=== PATIENT | male | born 1955 | race Caucasian/White ===

== ENCOUNTER 2017-11-11 09:40 | Inpatient (IN) | payer BC ==
[2017-11-11] MEDS: ONDANSETRON (ODT) 4 MG TAB ODT (10:41)
[2017-11-11] MEDS: HYDROCODONE/APAP (10/325) TAB PO (10:41)
[2017-11-11 11:13] LABS: ADD MAN DIFF? NO
[2017-11-11 11:22] LABS: WHITE BLOOD COUNT 7.4 10^3/ul (4.8-10.8)
[2017-11-11 11:22] LABS: ADD UMIC NO; BASOPHIL # 0.1 10^3/ul (0.0-0.1); BASOPHILS % 0.9 % (0.0-2.0); EOSINOPHILS # 0.2 10^3/ul (0.0-0.5); EOSINOPHILS % 2.6 % (0.0-7.0); HEMATOCRIT 43.9 % (42.0-52.0); HEMOGLOBIN 14.5 g/dl (14.0-18.0); LYMPHOCYTES % 27.5 % (15.0-51.0); MEAN CORPUSCULAR HEMOGLOBIN 28.6 pg (29.0-33.0); MEAN CORPUSCULAR VOLUME 86.6 fl (82.0-101.0); MEAN PLATELET VOLUME 10.3 fl (7.4-10.4); MONOCYTE # 0.6 10^3/ul (0.3-0.9); MONOCYTES % 8.4 % (0.0-11.0); NEUTROPHIL # 4.5 10^3/ul (1.6-7.5); NEUTROPHILS % 60.3 % (39.0-77.0); PLATELET COUNT 236 10^3/UL (140-415); RED BLOOD COUNT 5.07 10^6/ul (4.70-6.10); RED CELL DISTRIBUTION WIDTH 13.8 % (11.5-14.5); UR ASCORBIC ACID NEGATIVE (NEGATIVE); UR BILIRUBIN (Dip) NEGATIVE (NEGATIVE); UR BLOOD (Dip) NEGATIVE (NEGATIVE); UR CLARITY CLEAR (CLEAR); UR COLOR STRAW (YELLOW); UR GLUCOSE (Dip) NEGATIVE (NEGATIVE); UR KETONES (Dip) NEGATIVE (NEGATIVE); UR LEUKOCYTE ESTERASE (Dip) NEGATIVE Leu/ul (NEGATIVE); UR NITRITE (Dip) NEGATIVE (NEGATIVE); UR SPECIFIC GRAVITY (Dip) 1.004 (1.003-1.030); UR TOTAL PROTEIN (Dip) NEGATIVE (NEGATIVE); UR UROBILINOGEN (Dip) NEGATIVE (NEGATIVE)
[2017-11-11 11:39] LABS: ANION GAP 14 (8-16); BLOOD UREA NITROGEN 8 mg/dl (7-20); CALCIUM 9.4 mg/dl (8.4-10.2); CARBON DIOXIDE 30 mmol/L (21-31); CHLORIDE 101 mmol/L (97-110); CREATININE 0.79 mg/dl (0.61-1.24); GLUCOSE 110 mg/dl (70-220); POTASSIUM 4.3 mmol/L (3.5-5.1); SODIUM 141 mmol/L (135-144)
[2017-11-11 12:08] LABS: INR 0.95; PARTIAL THROMBOPLASTIN TIME 30.4 Sec (25.0-35.0); PROTIME 12.7 Sec (11.9-14.9)
[2017-11-11 12:18] LABS: TROPONIN-I < 0.012 ng/ml (0.00-0.12)
[2017-11-11] MEDS ORDERED: ONDANSETRON 4 MG INJ IV (13:30)
[2017-11-11] MEDS ORDERED: DOCUSATE SODIUM 100 MG CAP PO (13:30)
[2017-11-11] MEDS ORDERED: MAGNESIUM HYDROXIDE 30ML CUP PO (13:30)
[2017-11-11] MEDS ORDERED: NACL 0.9% 3 ML SYG IV (13:30)
[2017-11-11] MEDS ORDERED: ACETAMINOPHEN 325 MG TAB PO (13:30)
[2017-11-11 14:04] LABS: HEMOGLOBIN A1C 6.3 % (0-5.9)
[2017-11-11] MEDS: ONDANSETRON 4 MG INJ IV (16:01)
[2017-11-11] MEDS ORDERED: DEXTROSE 50% 50 ML SYRINGE IV ×2 (16:30)
[2017-11-11] MEDS ORDERED: GLUCOSE GEL 15 GRAM TUBE BUCCAL (16:30)
[2017-11-11] MEDS ORDERED: GLUCOSE GEL 15 GRAM TUBE PO ×2 (16:30)
[2017-11-11] MEDS ORDERED: GLUCAGON 1 MG INJ IM (16:30)
[2017-11-11] MEDS: INSULIN ASPART [NOVOLOG] 3 ML PEN SC ×2 (17:55→20:26)
[2017-11-11] MEDS: TAMSULOSIN (SR) 0.4 MG CAP PO (20:25)
[2017-11-11] MEDS: HYDROCODONE/APAP (5/325) TAB PO (23:09)
[2017-11-12] MEDS: INSULIN ASPART [NOVOLOG] 3 ML PEN SC ×4 (07:50→21:00)
[2017-11-12] MEDS: FAMOTIDINE 20 MG TAB PO (09:07)
[2017-11-12] MEDS: LOSARTAN 50 MG TAB PO (09:07)
[2017-11-12] MEDS: HYDROCODONE/APAP (5/325) TAB PO (12:23)
[2017-11-12] MEDS: ONDANSETRON 4 MG INJ IV (17:52)
[2017-11-12] MEDS: TAMSULOSIN (SR) 0.4 MG CAP PO (20:15)
[2017-11-13] MEDS: ACETAMINOPHEN 325 MG TAB PO ×2 (03:32→20:24)
[2017-11-13] MEDS: INSULIN ASPART [NOVOLOG] 3 ML PEN SC ×4 (07:50→21:00)
[2017-11-13] MEDS: FAMOTIDINE 20 MG TAB PO (08:41)
[2017-11-13] MEDS: LOSARTAN 50 MG TAB PO (08:41)
[2017-11-13] MEDS: HYDROCODONE/APAP (5/325) TAB PO ×2 (10:12→16:00)
[2017-11-13] MEDS: NICOTINE (21 MG/24 HR) PATCH TRANSDERM (12:27)
[2017-11-13] MEDS: ONDANSETRON 4 MG INJ IV (19:51)
[2017-11-13] MEDS: TAMSULOSIN (SR) 0.4 MG CAP PO (20:24)
[2017-11-13] MEDS: DEXTROSE 5%-0.45% NACL 1,000 ML IV (23:40)
[2017-11-14] MEDS: NEOMYC/POLYMYX/BACIT 30 GM OINT TOP
[2017-11-14] MEDS: POLYMYXIN/BACITRACIN 1L IRRIG IRR
[2017-11-14] MEDS: BUPIVACAINE 0.25% (MPF) 30 ML INJ INJ
[2017-11-14] MEDS ORDERED: BUPIVACAINE 0.25% (MPF) 30 ML INJ (06:55)
[2017-11-14] MEDS: INSULIN ASPART [NOVOLOG] 3 ML PEN SC ×4 (07:35→20:22)
[2017-11-14] MEDS ORDERED: NEOMYC/POLYMYX/BACIT 30 GM OINT (09:17)
[2017-11-14] MEDS ORDERED: ROCURONIUM 50 MG INJ (09:51)
[2017-11-14] MEDS ORDERED: LIDOCAINE 100 MG SYRINGE (09:51)
[2017-11-14] MEDS ORDERED: FENTAnyl 50 MCG/ML VIAL ×2 (09:51→09:54)
[2017-11-14] MEDS ORDERED: PROPOFOL 20 ML (09:51)
[2017-11-14] MEDS ORDERED: PROVENTIL HFA 6.7GM INHALER (09:51)
[2017-11-14] MEDS ORDERED: SUGAMMADEX SODIUM 200 MG/2 ML VIAL IV (09:51)
[2017-11-14] MEDS ORDERED: CEFAZOLIN 1 GM INJ (09:51)
[2017-11-14] MEDS ORDERED: SUCCINYLCHOLINE CHLORIDE 100 MG/5 ML SYG IV (09:51)
[2017-11-14] MEDS ORDERED: ONDANSETRON 4 MG INJ IV (10:00)
[2017-11-14] MEDS ORDERED: ALBUTEROL 0.083% (NEB) 2.5 MG/3 ML AMP HHN (10:00)
[2017-11-14] MEDS ORDERED: DIPHENHYDRAMINE 50 MG INJ IV (10:00)
[2017-11-14] MEDS ORDERED: HYDROmorphONE (0.2 MG/ML) 10ML SYG IV ×2 (10:00)
[2017-11-14] MEDS ORDERED: FENTAnyl 50 MCG/ML VIAL IV (10:00)
[2017-11-14] MEDS ORDERED: METOCLOPRAMIDE 10 MG INJ IV (10:00)
[2017-11-14] MEDS ORDERED: MEPERIDINE 25 MG INJ IV (10:00)
[2017-11-14] MEDS: FENTAnyl 50 MCG/ML VIAL IV ×2 (10:02→10:08)
[2017-11-14] MEDS: ONDANSETRON 4 MG INJ IV (10:54)
[2017-11-14] MEDS: FAMOTIDINE 20 MG TAB PO (13:03)
[2017-11-14] MEDS: LACTOBACILLUS RHAMNOSUS CAP PO ×2 (13:04→20:23)
[2017-11-14] MEDS: NICOTINE (21 MG/24 HR) PATCH TRANSDERM (13:04)
[2017-11-14] MEDS: LOSARTAN 50 MG TAB PO (13:04)
[2017-11-14] MEDS: CLINDAMYCIN 600 MG/D5W (PMX) 50 ML IVPB ×3 (13:26→23:39)
[2017-11-14] MEDS: DEXTROSE 5%-0.45% NACL 1,000 ML IV (13:27)
[2017-11-14] MEDS: TAMSULOSIN (SR) 0.4 MG CAP PO (20:23)
[2017-11-15] MEDS: DEXTROSE 5%-0.45% NACL 1,000 ML IV ×2 (04:06→18:24)
[2017-11-15 04:57] LABS: ADD MAN DIFF? NO
[2017-11-15 05:01] LABS: BASOPHIL # 0.1 10^3/ul (0.0-0.1); BASOPHILS % 0.7 % (0.0-2.0); EOSINOPHILS # 0.1 10^3/ul (0.0-0.5); EOSINOPHILS % 1.7 % (0.0-7.0); HEMATOCRIT 41.4 % (42.0-52.0); HEMOGLOBIN 13.3 g/dl (14.0-18.0); LYMPHOCYTES % 24.1 % (15.0-51.0); MEAN CORPUSCULAR HEMOGLOBIN 28.2 pg (29.0-33.0); MEAN CORPUSCULAR HGB CONC 32.1 g/dl (32.0-37.0); MEAN CORPUSCULAR VOLUME 87.9 fl (82.0-101.0); MEAN PLATELET VOLUME 10.5 fl (7.4-10.4); MONOCYTE # 0.8 10^3/ul (0.3-0.9); MONOCYTES % 10.4 % (0.0-11.0); NEUTROPHIL # 5.1 10^3/ul (1.6-7.5); NEUTROPHILS % 62.6 % (39.0-77.0); PLATELET COUNT 247 10^3/UL (140-415); RED BLOOD COUNT 4.71 10^6/ul (4.70-6.10); RED CELL DISTRIBUTION WIDTH 13.5 % (11.5-14.5)
[2017-11-15 05:01] LABS: WHITE BLOOD COUNT 8.1 10^3/ul (4.8-10.8)
[2017-11-15] MEDS: CLINDAMYCIN 600 MG/D5W (PMX) 50 ML IVPB ×4 (05:29→23:09)
[2017-11-15] MEDS: INSULIN ASPART [NOVOLOG] 3 ML PEN SC ×4 (07:50→20:04)
[2017-11-15] MEDS: LACTOBACILLUS RHAMNOSUS CAP PO ×2 (08:43→20:04)
[2017-11-15] MEDS: FAMOTIDINE 20 MG TAB PO (08:43)
[2017-11-15] MEDS: LOSARTAN 50 MG TAB PO (08:43)
[2017-11-15] MEDS: NICOTINE (21 MG/24 HR) PATCH TRANSDERM (09:00)
[2017-11-15] MEDS: HYDROCODONE/APAP (5/325) TAB PO ×2 (14:23→20:04)
[2017-11-15] MEDS: TAMSULOSIN (SR) 0.4 MG CAP PO (20:04)
[2017-11-16 05:13] LABS: ADD MAN DIFF? NO
[2017-11-16 05:22] LABS: BASOPHIL # 0.1 10^3/ul (0.0-0.1); BASOPHILS % 0.6 % (0.0-2.0); EOSINOPHILS # 0.2 10^3/ul (0.0-0.5); EOSINOPHILS % 2.6 % (0.0-7.0); HEMATOCRIT 40.3 % (42.0-52.0); HEMOGLOBIN 13.2 g/dl (14.0-18.0); LYMPHOCYTES # 2.2 10^3/ul (0.8-2.9); LYMPHOCYTES % 26.9 % (15.0-51.0); MEAN CORPUSCULAR HEMOGLOBIN 28.4 pg (29.0-33.0); MEAN CORPUSCULAR HGB CONC 32.8 g/dl (32.0-37.0); MEAN CORPUSCULAR VOLUME 86.9 fl (82.0-101.0); MEAN PLATELET VOLUME 10.9 fl (7.4-10.4); MONOCYTE # 0.9 10^3/ul (0.3-0.9); MONOCYTES % 10.8 % (0.0-11.0); NEUTROPHIL # 4.7 10^3/ul (1.6-7.5); NEUTROPHILS % 58.7 % (39.0-77.0); PLATELET COUNT 256 10^3/UL (140-415); RED BLOOD COUNT 4.64 10^6/ul (4.70-6.10); RED CELL DISTRIBUTION WIDTH 13.6 % (11.5-14.5)
[2017-11-16] MEDS: CLINDAMYCIN 600 MG/D5W (PMX) 50 ML IVPB ×3 (05:31→17:25)
[2017-11-16] MEDS: INSULIN ASPART [NOVOLOG] 3 ML PEN SC ×4 (07:50→20:36)
[2017-11-16] MEDS: DEXTROSE 5%-0.45% NACL 1,000 ML IV (08:42)
[2017-11-16] MEDS: FAMOTIDINE 20 MG TAB PO (08:48)
[2017-11-16] MEDS: LACTOBACILLUS RHAMNOSUS CAP PO ×2 (08:48→20:35)
[2017-11-16] MEDS: HYDROCODONE/APAP (5/325) TAB PO ×2 (08:48→15:29)
[2017-11-16] MEDS: LOSARTAN 50 MG TAB PO (08:49)
[2017-11-16] MEDS: NICOTINE (21 MG/24 HR) PATCH TRANSDERM (08:54)
[2017-11-16] MEDS ORDERED: GUAIFENESIN/DM 5ML CUP PO (16:00)
[2017-11-16] MEDS: CEPASTAT LOZENGE MT (17:25)
[2017-11-16] MEDS: OXYMETAZOLINE 0.05% 15 ML NAS SPRAY NASAL (18:55)
[2017-11-16] MEDS: FAMOTIDINE 20 MG INJ IV (20:35)
[2017-11-16] MEDS: TAMSULOSIN (SR) 0.4 MG CAP PO (20:36)
[2017-11-17] MEDS: CLINDAMYCIN 600 MG/D5W (PMX) 50 ML IVPB ×3 (00:15→13:01)
[2017-11-17 05:44] LABS: ADD MAN DIFF? NO
[2017-11-17 05:45] LABS: WHITE BLOOD COUNT 8.1 10^3/ul (4.8-10.8)
[2017-11-17 05:45] LABS: BASOPHIL # 0.1 10^3/ul (0.0-0.1); BASOPHILS % 1.1 % (0.0-2.0); EOSINOPHILS # 0.2 10^3/ul (0.0-0.5); EOSINOPHILS % 2.8 % (0.0-7.0); HEMOGLOBIN 13.5 g/dl (14.0-18.0); LYMPHOCYTES # 2.1 10^3/ul (0.8-2.9); LYMPHOCYTES % 26.3 % (15.0-51.0); MEAN CORPUSCULAR HEMOGLOBIN 28.7 pg (29.0-33.0); MEAN CORPUSCULAR HGB CONC 32.9 g/dl (32.0-37.0); MEAN CORPUSCULAR VOLUME 87.2 fl (82.0-101.0); MEAN PLATELET VOLUME 10.7 fl (7.4-10.4); MONOCYTE # 0.9 10^3/ul (0.3-0.9); MONOCYTES % 11.2 % (0.0-11.0); NEUTROPHIL # 4.7 10^3/ul (1.6-7.5); NEUTROPHILS % 58.1 % (39.0-77.0); PLATELET COUNT 273 10^3/UL (140-415); RED CELL DISTRIBUTION WIDTH 13.5 % (11.5-14.5)
[2017-11-17 06:15] LABS: ALANINE AMINOTRANSFERASE 28 IU/L (13-69); ALBUMIN 4.1 g/dl (3.3-4.9); ALBUMIN/GLOBULIN RATIO 1.17; ALKALINE PHOSPHATASE 75 IU/L (42-121); ANION GAP 13 (8-16); ASPARTATE AMINO TRANSFERASE 15 IU/L (15-46); BILIRUBIN,INDIRECT 0.1 mg/dl (0-1.1); BILIRUBIN,TOTAL 0.1 mg/dl (0.2-1.3); BLOOD UREA NITROGEN 7 mg/dl (7-20); CALCIUM 9.1 mg/dl (8.4-10.2); CARBON DIOXIDE 31 mmol/L (21-31); CHLORIDE 101 mmol/L (97-110); CREATININE 0.72 mg/dl (0.61-1.24); GLUCOSE 117 mg/dl (70-220); MAGNESIUM 1.9 mg/dl (1.7-2.5); PHOSPHORUS 3.6 mg/dl (2.5-4.9); POTASSIUM 4.2 mmol/L (3.5-5.1); SODIUM 141 mmol/L (135-144); TOTAL PROTEIN 7.6 g/dl (6.1-8.1)
[2017-11-17] MEDS: LOSARTAN 50 MG TAB PO (08:57)
[2017-11-17] MEDS: INSULIN ASPART [NOVOLOG] 3 ML PEN SC ×4 (09:00→21:00)
[2017-11-17] MEDS: FAMOTIDINE 20 MG INJ IV ×2 (09:00→20:56)
[2017-11-17] MEDS: LACTOBACILLUS RHAMNOSUS CAP PO ×2 (09:00→20:56)
[2017-11-17] MEDS: ENOXAPARIN 40 MG/0.4 ML SYG SC (09:00)
[2017-11-17] MEDS: OXYMETAZOLINE 0.05% 15 ML NAS SPRAY NASAL ×2 (09:00→20:56)
[2017-11-17] MEDS: NICOTINE (21 MG/24 HR) PATCH TRANSDERM (09:01)
[2017-11-17] MEDS: CLINDAMYCIN 150 MG CAP PO (19:02)
[2017-11-17] MEDS: TAMSULOSIN (SR) 0.4 MG CAP PO (20:56)
[2017-11-18] MEDS: CLINDAMYCIN 150 MG CAP PO ×2 (00:27→05:42)
[2017-11-18] MEDS: HYDROCODONE/APAP (10/325) TAB PO (05:46)
[2017-11-18] MEDS: INSULIN ASPART [NOVOLOG] 3 ML PEN SC (07:50)
[2017-11-18] MEDS: ONDANSETRON 4 MG INJ IV (08:03)
[2017-11-18] MEDS: FAMOTIDINE 20 MG INJ IV (09:00)
[2017-11-18] MEDS: NICOTINE (21 MG/24 HR) PATCH TRANSDERM (09:00)
[2017-11-18] MEDS: ENOXAPARIN 40 MG/0.4 ML SYG SC (09:00)
[2017-11-18] MEDS: LACTOBACILLUS RHAMNOSUS CAP PO (09:18)
[2017-11-18] MEDS: LOSARTAN 50 MG TAB PO (09:18)
[2017-11-18] MEDS: OXYMETAZOLINE 0.05% 15 ML NAS SPRAY NASAL (09:19)
== END 2017-11-18 10:58 | disposition home or self-care (01) | DRG 575 ==
LOC: E/R 09:40 → MS1 13:26
PROC: 0WBM0ZZ Excision of Male Perineum, Open Approach (ICD-10-PCS; principal; 2017-11-14 07:30)
PROC: 0W9M0ZZ Drainage of Male Perineum, Open Approach (ICD-10-PCS; 2017-11-14 07:30)
DX: L02.215 Cutaneous abscess of perineum (principal); E11.9 Type 2 diabetes mellitus without complications; F17.210 Nicotine dependence, cigarettes, uncomplicated; I10 Essential (primary) hypertension; N49.2 Inflammatory disorders of scrotum; Z79.4 Long term (current) use of insulin
CPT/HCPCS: 36415; 71045; 76870; 80048; 80053; 81003; 82962; 83036; 83735; 84100; 84443; 84484; 85025; 85610; 85730; 87070; 87075; 87086; 87400; 88307; 93005; 99285-25